=== PATIENT | female | born 1935 | race Two or more races ===

== ENCOUNTER 2022-10-04 13:25 | Inpatient (IN) | payer OTHER ==
[~2022-10-04] VITALS: Ht 165.1 cm; Wt 59.6 kg
[2022-10-04] VITALS (13 sets, daily range): BP systolic 127–148; BP diastolic 60–84; PULSE 20–94; RESP 12–21; TEMP 97.9–98.8; O2SAT 96–98
[2022-10-04 14:27] LABS: Eosinophils # (auto) 0.2 10 ^3/uL (0-0.8); Lymphocytes # (auto) 4.2 10 ^3/uL (0.4-5.4); Mean Corpuscular Hemoglobin 15.9 pg (28.0-32.0); Mean Corpuscular Hgb Conc. 28.9 g/dL (32.0-36.0); Monocytes # (auto) 0.6 10 ^3/uL (0-1.3); Monocytes % (auto) 6.4 % (0.0-12.0); Nucleated Red Blood Cells % 0.1 %
[2022-10-04 14:29] LABS: Basophils # (auto) 0.1 10 ^3/uL (0-0.2); Basophils % (auto) 0.8 % (0.0-2.0); Eosinophils % (auto) 1.8 % (0.0-7.0); Hematocrit 23.3 % (36.0-46.0); Lymphocytes % (auto) 47.5 % (10.0-50.0); Neutrophils # (auto) 3.9 10 ^3/uL (1.6-8.6); Neutrophils % (auto) 43.5 % (37.0-80.0); Red Blood Cells 4.24 10^6/uL (4.0-5.20); White Blood Cell 8.9 10^3/uL (4.4-10.8)
[2022-10-04 14:38] LABS: Red Cell Distribution Width 23.3 % (11.8-14.3)
[2022-10-04 14:40] LABS: Hemoglobin 6.7 g/dL (12.2-16.2)
[2022-10-04 14:57] LABS: Platelet Estimate Adequate
[2022-10-04 14:58] LABS: Anisocytosis Slight; Hypochromia Marked
[2022-10-04 15:11] LABS: Alanine Aminotransferase 12 U/L (7-40); Albumin 4.1 g/dL (3.2-4.8); Alkaline Phosphatase 109 U/L (46-116); Aspartate Aminotransferase 15 U/L (13-40); BUN/Creatinine Ratio 36.2 (10.0-20.0); Bilirubin, Total 0.4 mg/dL (0.2-1.0); Blood Urea Nitrogen 17 mg/dL (9-23); Chloride 107 mmol/L (98-107); Glucose 119 mg/dL (74-106); Potassium 3.9 mmol/L (3.5-5.1); Sodium 139 mmol/L (136-145); Total Protein 6.9 g/dL (5.7-8.2)
[2022-10-04 15:53] LABS: Urine Bacteria NONE SEEN /hpf (None Seen); Urine Blood Negative /uL (Negative); Urine Clarity Clear (Clear); Urine Color Yellow (Yellow); Urine Mucus FEW (None Seen); Urine Protein, UAD TRACE (Negative); Urine Specific Gravity 1.018 (1.001-1.035); Urine Urobilinogen Normal (Negative); Urine WBC 36 /hpf (0 - 5); Urine pH 5.5 (5.0-8.0)
[2022-10-04] MEDS ORDERED: ENOXAPARIN SOD 60 MG/0.6 ML SYRINGE SC ONE (16:15)
[2022-10-04] MEDS ORDERED: MORPHINE SULFATE INJ 2 MG/ml SYRG IV PRN ×2 (17:00)
[2022-10-04] MEDS ORDERED: ACETAMINOPHEN 325 MG TAB PO PRN (17:00)
[2022-10-04] MEDS ORDERED: NITROGLYCERIN 0.4 MG SL TAB SL PRN (17:00)
[2022-10-04] MEDS ORDERED: HYDROcodone-ACET 5/325MG TAB PO PRN (17:00)
[2022-10-04] MEDS ORDERED: ONDANSETRON HCL 4 MG/2 ML VIAL IV PRN (17:00)
[2022-10-04 18:01] LABS: % Iron Saturation 2.4 % (15-50)
[2022-10-04] MEDS: SODIUM CHLORIDE 0.9% 1,000 ML IV SCH (20:59)
[2022-10-05] VITALS (10 sets, daily range): BP systolic 119–159; BP diastolic 61–86; PULSE 77–96; RESP 16–18; TEMP 97.4–98.3; O2SAT 95–98
[2022-10-05 03:29] LABS: Hematocrit 30.3 % (36.0-46.0); Hemoglobin 9.5 g/dL (12.2-16.2)
[2022-10-05 05:27] LABS: Albumin 3.8 g/dL (3.2-4.8); Alkaline Phosphatase 96 U/L (46-116); Aspartate Aminotransferase 12 U/L (13-40); BUN/Creatinine Ratio 28.6 (10.0-20.0); Blood Urea Nitrogen 12 mg/dL (9-23); Calcium 8.6 mg/dL (8.7-10.4); Chloride 109 mmol/L (98-107); Glucose 98 mg/dL (74-106); Potassium 3.6 mmol/L (3.5-5.1); Sodium 138 mmol/L (136-145)
[2022-10-05 05:28] LABS: Bilirubin, Total 1.6 mg/dL (0.2-1.0); Total Protein 6.6 g/dL (5.7-8.2)
[2022-10-05 05:45] LABS: Basophils # (auto) 0 10 ^3/uL (0-0.2); Basophils % (auto) 0.2 % (0.0-2.0); Eosinophils # (auto) 0.2 10 ^3/uL (0-0.8); Eosinophils % (auto) 2.4 % (0.0-7.0); Lymphocytes # (auto) 3.9 10 ^3/uL (0.4-5.4)
[2022-10-05 05:48] LABS: Hematocrit 30.7 % (36.0-46.0); Hemoglobin 9.7 g/dL (12.2-16.2); Mean Corpuscular Hemoglobin 19.6 pg (28.0-32.0); Mean Corpuscular Hgb Conc. 31.4 g/dL (32.0-36.0); Mean Corpuscular Volume 62.4 fL (80.0-100.0); Monocytes # (auto) 0.6 10 ^3/uL (0-1.3); Monocytes % (auto) 6.3 % (0.0-12.0); Neutrophils # (auto) 5.2 10 ^3/uL (1.6-8.6); Neutrophils % (auto) 52.1 % (37.0-80.0); Nucleated Red Blood Cells % 0.1 %; Red Blood Cells 4.93 10^6/uL (4.0-5.20); White Blood Cell 9.9 10^3/uL (4.4-10.8)
[2022-10-05 05:49] LABS: Alanine Aminotransferase < 9 U/L (7-40)
[2022-10-05 06:01] LABS: Red Cell Distribution Width 33.2 % (11.8-14.3)
[2022-10-05] MEDS: cefTRIAXone 1GM/50ML D5W 50 ML IV SCH (09:00)
[2022-10-05] MEDS: SODIUM CHLORIDE 0.9% 1,000 ML IV SCH (10:06)
[2022-10-05 10:21] LABS: Platelet Estimate Adequate
[2022-10-05 10:23] LABS: Hypochromia Moderate
[2022-10-05 10:24] LABS: Anisocytosis Moderate
[2022-10-05 10:45] LABS: LDL Cholesterol 67 mg/dL (< 100); Triglycerides 77 mg/dL (< 150)
[2022-10-05 10:47] LABS: Cholesterol 128 mg/dL (< 200); HDL Cholesterol 48 mg/dL (40-59)
[2022-10-05] MEDS ORDERED: AMLO1TAB23 PO (16:37)
[2022-10-05] MEDS ORDERED: ALEN70TA74 PO (16:37)
[2022-10-05] MEDS ORDERED: LEVO75TA6 PO (16:37)
[2022-10-05] MEDS ORDERED: amLODIPine BESYLATE 5 MG TAB PO ONE (18:30)
[2022-10-06] VITALS (8 sets, daily range): BP systolic 94–149; BP diastolic 53–80; PULSE 77–89; RESP 16–18; TEMP 97.3–98.3; O2SAT 96–98
[2022-10-06] MEDS: SODIUM CHLORIDE 0.9% 1,000 ML IV SCH ×2 (02:20→19:00)
[2022-10-06] MEDS: cefTRIAXone 1GM/50ML D5W 50 ML IV SCH (08:06)
[2022-10-06] MEDS: amLODIPine BESYLATE 5 MG TAB PO SCH (09:14)
[2022-10-07 05:00] VITALS: BP 132/85; PULSE 89; RESP 17; TEMP 97.9; O2SAT 97
[2022-10-07 08:00] VITALS: PULSE 82; PULSE 92; RESP 18; O2SAT 96
[2022-10-07 09:00] VITALS: BP 115/68; PULSE 82; RESP 18; TEMP 98.1; O2SAT 96
[2022-10-07] MEDS: cefTRIAXone 1GM/50ML D5W 50 ML IV SCH (09:17)
[2022-10-07] MEDS: amLODIPine BESYLATE 5 MG TAB PO SCH (09:28)
[2022-10-07] MEDS: SODIUM CHLORIDE 0.9% 1,000 ML IV SCH (11:40)
[2022-10-07] MEDS ORDERED: IRON SUCROSE COMPLEX 200 MG in SODIUM CHL 0.9% 100 ML IV SCH (12:00)
[2022-10-07 13:00] VITALS: BP 117/61; PULSE 74; RESP 18; TEMP 97.7; O2SAT 97
[2022-10-07 16:05] LABS: Hematocrit 30.4 % (36.0-46.0); Hemoglobin 9.3 g/dL (12.2-16.2)
[2022-10-07 16:12] VITALS: BP 115/68; PULSE 82; RESP 18; TEMP 97.7; O2SAT 96
[2022-10-07 17:00] VITALS: BP 117/62; PULSE 78; RESP 18; TEMP 98.5; O2SAT 96
== END 2022-10-07 18:17 | disposition home or self-care (01) | DRG 812 ==
LOC: ER 13:25 → TELE 17:00 → OBSVTOIN 23:02 → TELE-WESTW 10-05 10:36
PROVIDERS: ADMIT Internal Medicine; ATTEND Internal Medicine
PROC: 30233N1 Transfusion of Nonautologous Red Blood Cells into Peripheral Vein, Percutaneous Approach (ICD-10-PCS; principal; 2022-10-04)
DX: D50.9 Iron deficiency anemia, unspecified (principal); N39.0 Urinary tract infection, site not specified; I24.8 Other forms of acute ischemic heart disease; M81.0 Age-related osteoporosis without current pathological fracture; I10 Essential (primary) hypertension; E03.9 Hypothyroidism, unspecified; E78.5 Hyperlipidemia, unspecified; Z80.2 Family history of malignant neoplasm of other respiratory and intrathoracic organs; Z80.8 Family history of malignant neoplasm of other organs or systems; Z83.3 Family history of diabetes mellitus; Z88.0 Allergy status to penicillin; Z92.21 Personal history of antineoplastic chemotherapy; Z92.3 Personal history of irradiation
CPT/HCPCS: 36415; 70450; 71045; 80053; 80061; 81001; 83036; 83540; 83550; 84443; 84484; 85014; 85018; 85025; 86850; 86900; 86901; 86920; 87086; 93005; 93306; 97163; 99291; G0378; J0696; J1756